=== PATIENT | female | born 1930 | race African-American/Black ===

== ENCOUNTER 2019-09-13 14:19 | Inpatient (IN) | payer MEDICARE, MEDICAID ==
[~2019-09-13] VITALS: Ht 160 cm; Wt 62.6 kg
[~2019-09-13 14:19] MED LIST: B50 PO; HYDR-519 PO; HYDR200T80 PO; LISI2.5T89 PO; LORA10CA PO; MIRT30TA PO; QUET25TA PO
[2019-09-13 16:00] LABS: CHLORIDE 108 mEq/L (98-107)
[2019-09-13 16:03] LABS: BASOPHILS % 0.4 % (0.0-2.0); HEMATOCRIT. 31.2 % (36.0-48.0); HEMOGLOBIN. 10.4 g/dL (12.0-16.0); MEAN CORPUSCULAR HEMOGLOBIN 29.5 pg (28.0-32.0); MEAN CORPUSCULAR VOLUME 88.9 fL (81.0-99.0); MEAN PLATELET VOLUME 7.4 fl (7.4-10.4); MONOCYTES % 5.4 % (2.0-8.0); NEUTROPHILS % 73.2 % (40.0-76.0); PLATELET 444 x1000/uL (130-400); RED BLOOD CELL COUNT 3.51 mill/uL (4.2-5.4); RED CELL DISTRIBUTION WIDTH 14.4 % (11.6-14.6)
[2019-09-13 16:04] LABS: ETHANOL BLOOD < 10 mg/dL
[2019-09-13 16:07] LABS: LDL CHOLESTEROL 137 mg/dL (5-100)
[2019-09-13 17:05] LABS: CLARITY URINE TURBID (CLEAR); COLOR URINE YELLOW (YELLOW); KETONES URINE TRACE (NEGATIVE); LEUKOCYTE ESTERASE URINE 3+ (NEGATIVE); NITRITE URINE NEGATIVE (NEGATIVE); OCCULT BLOOD URINE TRACE (NEGATIVE); PH URINE 7.5 (4.5-8.0); PROTEIN URINE 2+ (NEGATIVE); SPECIFIC GRAVITY URINE 1.015 (1.005-1.030)
[2019-09-13] MEDS ORDERED: LEVOFLOXACIN 500MG PREMIX 100 ML IV ONE (17:15)
[2019-09-13 17:36] LABS: *BARBITURATES SCREEN URINE NEGATIVE (NEGATIVE); *BENZODIAZEPINES SCREEN URINE NEGATIVE (NEGATIVE); *COCAINE SCREEN URINE NEGATIVE (NEGATIVE); CANNABINOID URINE SCREEN NEGATIVE (NEGATIVE); METHADONE URINE SCREEN NEGATIVE (NEGATIVE); OPIATES URINE SCREEN PRESUMTIVE POSITIVE (NEGATIVE); PHENCYCLIDINE URINE SCREEN NEGATIVE (NEGATIVE)
[2019-09-13 17:37] LABS: *AMPHETAMINES SCREEN URINE NEGATIVE (NEGATIVE)
[2019-09-13] MEDS ORDERED: MAGNESIUM/ALUMINUM HYDROXIDE/SIMETHICONE 30ML UDC PO PRN (21:30)
[2019-09-13] MEDS ORDERED: GUAIFENESIN 200MG/10ML SUGAR FREE UDC PO PRN (21:30)
[2019-09-13] MEDS ORDERED: IPRATROPIUM/ALBUTEROL 0.5-3(2.5)MG/3ML NEB NEB PRN (21:30)
[2019-09-13] MEDS ORDERED: ONDANSETRON HCL 4MG/2ML INJ IV PRN (21:30)
[2019-09-13] MEDS ORDERED: DIPHENHYDRAMINE 50MG/ML VIAL IV PRN (21:30)
[2019-09-13] MEDS: CLONIDINE 0.1MG TABLET PO PRN (21:55)
[2019-09-13 22:43] VITALS: BP 160/71
[2019-09-13] MEDS ORDERED: DOCU-138 MT (23:00)
[2019-09-13] MEDS ORDERED: AMLO10TA80 MT (23:00)
[2019-09-13] MEDS ORDERED: CRAN450T10 MT (23:00)
[2019-09-13] MEDS ORDERED: CYCL5TAB MT (23:00)
[2019-09-13] MEDS ORDERED: HYDR-4135 MT (23:00)
[2019-09-13] MEDS ORDERED: HYDR-4001 MT (23:00)
[2019-09-13] MEDS ORDERED: MIRT45TA83 MT (23:04)
[2019-09-13] MEDS ORDERED: TOPUD MT (23:04)
[2019-09-13] MEDS ORDERED: POLY250017 MT (23:04)
[2019-09-13] MEDS ORDERED: LEVO100T PO (23:04)
[2019-09-13] MEDS ORDERED: LABE100T5 MT (23:04)
[2019-09-14] VITALS (7 sets, daily range): BP systolic 121–167; BP diastolic 58–76
[2019-09-14] MEDS: DEXT 5%/0.45% NACL 1000ML 1,000 ML IV SCH ×2 (00:07→11:14)
[2019-09-14] MEDS: ENOXAPARIN 40MG/0.4ML SYR SUBCUT SCH (08:33)
[2019-09-14] MEDS: ACETAMINOPHEN 325MG TABLET PO PRN ×3 (08:34→17:14)
[2019-09-14] MEDS: ASPIRIN 325MG EC TABLET PO SCH (08:34)
[2019-09-14] MEDS: CLONIDINE 0.1MG TABLET PO PRN (12:38)
[2019-09-14] MEDS: LEVOFLOXACIN 250MG PREMIX 50 ML IV SCH (16:45)
[2019-09-14] MEDS ORDERED: LEVOFLOXACIN 250MG PREMIX 50 ML IV SCH (18:00)
[2019-09-14] MEDS: HYDROCODONE/ACETAMINOPHEN 5/325MG TABLET PO PRN ×2 (18:04→22:47)
[2019-09-15] VITALS: BP 158/81
[2019-09-15] MEDS: DEXT 5%/0.45% NACL 1000ML 1,000 ML IV SCH ×2 (01:00→15:09)
[2019-09-15 04:00] VITALS: BP 154/82
[2019-09-15] MEDS: HYDROCODONE/ACETAMINOPHEN 5/325MG TABLET PO PRN (05:21)
[2019-09-15 08:00] VITALS: BP 146/74
[2019-09-15] MEDS: ASPIRIN 325MG EC TABLET PO SCH (08:27)
[2019-09-15] MEDS: ENOXAPARIN 40MG/0.4ML SYR SUBCUT SCH (08:28)
[2019-09-15] MEDS: LEVOFLOXACIN 250MG PREMIX 50 ML IV SCH (10:32)
[2019-09-15] MEDS: ACETAMINOPHEN 325MG TABLET PO PRN ×2 (11:31→16:51)
[2019-09-15 12:00] VITALS: BP 180/90
[2019-09-15 16:00] VITALS: BP 140/60
[2019-09-15] MEDS: CLONIDINE 0.1MG TABLET PO PRN (19:51)
[2019-09-15 20:00] VITALS: BP 191/90
[2019-09-16] VITALS: BP 125/86
[2019-09-16] MEDS: ACETAMINOPHEN 325MG TABLET PO PRN (01:21)
[2019-09-16 04:00] VITALS: BP 179/87
[2019-09-16] MEDS: CLONIDINE 0.1MG TABLET PO PRN ×2 (04:10→13:46)
[2019-09-16] MEDS: DEXT 5%/0.45% NACL 1000ML 1,000 ML IV SCH (04:11)
[2019-09-16 08:00] VITALS: BP 162/79
[2019-09-16] MEDS: ASPIRIN 325MG EC TABLET PO SCH (09:50)
[2019-09-16] MEDS: ENOXAPARIN 40MG/0.4ML SYR SUBCUT SCH (09:51)
[2019-09-16] MEDS ORDERED: LEVOFLOXACIN 250MG TABLET PO SCH (11:00)
[2019-09-16 12:00] VITALS: BP 153/95
[2019-09-16 16:00] VITALS: BP 143/70
[2019-09-16] MEDS ORDERED: APIXABAN 5 MG TABLET PO SCH (17:00)
[2019-09-16] MEDS ORDERED: INFLUENZA VIRUS VACCINE(AFLURIA) 0.5ML SYR IM ONE (17:45)
[2019-09-16] MEDS ORDERED: PNEUMOCOCCAL 23-VAL P-SAC VAC 0.5 ML IM ONE (17:45)
== END 2019-09-16 19:40 | DRG 683 ==
LOC: ER 14:19 → EDBEDREQ 17:17 → EDBEDREQSVC 17:17 → EDBEDREQTM 17:17 → ENRESERV 20:58 → 8WST 22:26
PROVIDERS: ADMIT Internal Medicine; ATTEND Internal Medicine
DX: N17.9 Acute kidney failure, unspecified (principal); N39.0 Urinary tract infection, site not specified; I82.411 Acute embolism and thrombosis of right femoral vein; J06.9 Acute upper respiratory infection, unspecified; F03.90 Unspecified dementia, unspecified severity, without behavioral disturbance, psychotic disturbance, mood disturbance, and anxiety; M06.9 Rheumatoid arthritis, unspecified; J45.909 Unspecified asthma, uncomplicated; E87.6 Hypokalemia; F32.9 Major depressive disorder, single episode, unspecified; E03.9 Hypothyroidism, unspecified; Z86.73 Personal history of transient ischemic attack (TIA), and cerebral infarction without residual deficits; Z90.710 Acquired absence of both cervix and uterus; Z88.0 Allergy status to penicillin; Z98.49 Cataract extraction status, unspecified eye; Z88.5 Allergy status to narcotic agent; Z91.041 Radiographic dye allergy status; Z79.899 Other long term (current) drug therapy
CPT/HCPCS: 36415; 70551; 71045; 72170; 80061; 80305; 80320; 81003; 83036; 83721; 83880; 84443; 84484; 87077; 87186; 90686; 90732; 93005; 93880; 93970; 96365; 99291; J1650; J1956; G0480